=== PATIENT | male | born 1960 ===

== ENCOUNTER 2021-01-11 11:45 | Inpatient (IN) | payer OTHER ==
[~2021-01-11] VITALS: Ht 172.7 cm; Wt 58.5 kg
[2021-01-15] MEDS ORDERED: ESOMEPRAZOLE MA40 MG (11:08)
[2021-01-15] MEDS ORDERED: FAMOTIDINE40 MG (11:08)
[2021-01-15] MEDS ORDERED: HYDROCORTISONE30 G4 (11:08)
[2021-01-19] MEDS ORDERED: PERCOCET 5-3251 EACH PO (15:45)
== END 2021-01-19 17:53 | disposition home or self-care (01) | DRG 330 ==
LOC: ADM 11:45 → SURH 01-15 06:49 → O/R 01-15 06:49 → SURH 01-15 09:00 → EDBD 01-15 11:45 → CIR.AMB 01-15 11:45 → SURH 01-15 11:45 → EDSTATUS 01-15 11:45 → SURH 01-15 14:22
PROVIDERS: ADMIT Surgery; ATTEND Surgery
PROC: 0DTP4ZZ Resection of Rectum, Percutaneous Endoscopic Approach (ICD-10-PCS; 2021-01-15)
PROC: 3E0F7SF Introduction of Other Gas into Respiratory Tract, Via Natural or Artificial Opening (ICD-10-PCS; 2021-01-15)
PROC: 0DTN4ZZ Resection of Sigmoid Colon, Percutaneous Endoscopic Approach (ICD-10-PCS; principal; 2021-01-15 09:00)
PROC: 0DJD8ZZ Inspection of Lower Intestinal Tract, Via Natural or Artificial Opening Endoscopic (ICD-10-PCS; 2021-01-17)
PROC: 30233N1 Transfusion of Nonautologous Red Blood Cells into Peripheral Vein, Percutaneous Approach (ICD-10-PCS; 2021-01-18)
PROC: BT10ZZZ Fluoroscopy of Bladder (ICD-10-PCS; 2021-01-19)
DX: K57.20 Diverticulitis of large intestine with perforation and abscess without bleeding (principal); N32.1 Vesicointestinal fistula; K91.840 Postprocedural hemorrhage of a digestive system organ or structure following a digestive system procedure; Y83.8 Other surgical procedures as the cause of abnormal reaction of the patient, or of later complication, without mention of misadventure at the time of the procedure; Y92.230 Patient room in hospital as the place of occurrence of the external cause; D64.9 Anemia, unspecified